=== PATIENT | female | born 1930 | race Caucasian/White ===

== ENCOUNTER 2017-02-03 11:40 | Day surgery (SDC) | payer BC, MEDICARE ==
[2017-02-03] MEDS ORDERED: LIDOCAINE 2% MDV (20MG/ML) 20ML VIAL IV ONE (15:48)
[2017-02-03] MEDS ORDERED: PROPOFOL 10 MG/ML VIAL IV ONE (15:48)
--- NOTE | 2017-02-04 16:42 | Operative Note ---
DATE OF SURGERY: 02/03/2017 OPERATION: COLONOSCOPY to the cecum. INDICATION: Colorectal cancer screening. ANESTHESIA: Intravenous sedation was administered by the department of anesthesiology and included Diprivan titrated to effect. PROCEDURE: Following informed consent from this alert individual, including a discussion of the risks and benefits of the procedure and an opportunity for the patient to ask questions, the patient was in the left lateral decubitus position. A digital rectal examination was performed. No abnormalities were noted. Following this, the Olympus JCS250 video colonoscope was inserted into the rectum without resistance. The rectal mucosa had a normal appearance with normal folds and distensibility. The colonoscope was advanced up through the bowel to the level of the cecum without much difficulty. A few scattered diverticula were noted in the sigmoid region. The colon preparation was good. From the base of the cecum, the colonoscope was then withdrawn back through the bowel, reexamining the mucosa upon withdrawal. Again the right colon and transverse colon were endoscopically normal. Descending colon likewise was free from changes. There were a few scattered diverticula noted in the sigmoid colon. The endoscope was then drawn back into the rectum where retroflexion accomplished following air insufflation demonstrated small internal hemorrhoids. The endoscope was straightened and removed. The patient tolerated the procedure well and was returned to the recovery area in stable condition. IMPRESSION: 1. Sigmoid diverticulosis. 2. Small internal hemorrhoids. RECOMMENDATIONS: The patient was advised to follow up with the primary care physician. As always, thank you for allowing me to participate in the care of your patient. Nick Weaver DO CC: Dr. Elyse TALAMANTES
== END 2017-02-03 15:15 | disposition home or self-care (01) ==
LOC: HOP 11:40
PROVIDERS: ATTEND Internal Medicine Gastroenterology
DX: Z12.11 Encounter for screening for malignant neoplasm of colon (principal); K57.30 Diverticulosis of large intestine without perforation or abscess without bleeding; K64.8 Other hemorrhoids
CPT/HCPCS: 00810; G0121

== ENCOUNTER 2017-02-07 00:49 | Emergency (ER) | payer BC, MEDICARE ==
--- NOTE | 2017-02-07 01:19 | Emergency Department Record ---
History of Present Illness - General Chief Complaint: Fall Injury Stated Complaint: SLIP AND FALL Time Seen by Provider: 02/07/17 01:13 Source: Patient Mode of Arrival: EMS Limitations: No limitations - History of Present Illness Initial Comments: 86 yo female presents to ED with a CC of a "slip off the end of my bed this morning". Patient reports that she slid from the edge of her bed striking her bottom on the floor, denies injury to the head or neck, but reports that she bumped her knee against her bed rail. Patient reports that she is unable to get up from sitting of the floor at the baseline, but following help from EMS, patient reported that it felt as though her left knee was going to "give out". 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 Patient denies headache, neck pain, numbness, tingling, or extremity weakness on examination. MD Complaint: Fall Onset/Timin -: Minutes(s) Fall From: Out of bed When Fall Occurred: Just prior to arrival Fall Witnessed: Yes, by family Place Fall Occurred: Home Loss of Consciousness: None Prolonged Down Time?: Unclear Symptoms Prior to Fall: None Location - Extremities: Left: Knee Associated Symptoms: Denies - [place] Coma Scale Eye Response: (4) Open spontaneously Motor Response: (6) Obeys commands Verbal Response: (5) Oriented [place] Total: 15 - Related Data Home Medications Medication Instructions Recorded Confirmed Last Taken Lisinopril 10 mg PO DAILY 01/23/16 02/07/17 02/07/17 t-1 Cholecalciferol (Vitamin D3) 1,000 unit PO DAILY 02/07/17 02/07/17 02/06/17 [Vitamin D3] Metoprolol Succinate [Toprol Xl] 25 mg PO DAILY 02/07/17 02/07/17 02/06/17 Warfarin Sodium [Coumadin] 2 mg PO DAILY 02/07/17 02/07/17 02/06/17 Allergies Allergy/AdvReac Type Severity Reaction Status Date / Time codeine Allergy Unknown shivering Verified 02/07/17 00:50 Travel Screening - Travel/Exposure Within Last 30 Days Have you traveled within the last 30 days?: No - Travel Symptoms Symptom Screening: None Review of Systems Constitutional: Denies: Chills, Fever, Malaise, Night sweats Eyes: Denies: Eye discharge, Eye pain ENT: Denies: Congestion, Ear pain, Epistaxis Respiratory: Denies: Cough, Dyspnea Cardiovascular: Denies: Chest pain, Dyspnea on exertion Endocrine: Denies: Fatigue, Heat or cold intolerance Gastrointestinal: Denies: Abdominal pain, Nausea, Vomiting Genitourinary: Denies: Incontinence, Retention Musculoskeletal: Reports: Arthralgia (left knee pain). Denies: Back pain Skin: Denies: Bruising, Change in color Neurological: Denies: Abnormal gait, Confusion, Seizure Psychiatric: Denies: Anxiety Hematological/Lymphatic: Denies: Anemia, Blood Clots Past Medical History - SOCIAL HISTORY Smoking Status: Never smoker - RESPIRATORY Hx Respiratory Disorders: No - CARDIOVASCULAR Hx Cardio Disorders: Yes Hx Hypertension: Yes Hx Irregular Heartbeat: Yes (AFIB) - NEURO Hx Neuro Disorders: Yes Hx of Migraines: Yes - GI Hx GI Disorders: Yes Hx Reflux: Yes - Hx Genitourinary Disorders: Yes Hx Bladder Problem: Yes (NOCTURIA) - ENDOCRINE Hx Endocrine Disorders: No - MUSCULOSKELETAL Hx Musculoskeletal Disorders: Yes Hx Arthritis: Yes - PSYCH Hx Psych Problems: No - HEMATOLOGY/ONCOLOGY Hx Hematology/Oncology Disorders: Yes Hx Cancer: Yes (MELANOMA) Hx Chemotherapy: No Hx Radiation Therapy: No Family Medical History Any Significant Family History?: Yes Hx Cancer: Father Hx Heart Disease: Father Hx Kidney Disease: Mother Physical Exam - General General Appearance: Alert, Oriented x3, Cooperative, No acute distress, Other ( talkative on examination) Limitations: No limitations - Head Head exam: Atraumatic, Normocephalic, Normal inspection Head exam detail: negative: Abrasion, Contusion, Benson's sign, General tenderness, Hematoma, Laceration - Eye Eye exam: Normal appearance. negative: Conjunctival injection, Periorbital swelling, Periorbital tenderness, Scleral icterus - ENT Ear exam: negative: Auricular hematoma, Auricular trauma Nasal Exam: negative: Active bleeding, Discharge, Dried blood, Foreign body Mouth exam: negative: Drooling, Laceration, Muffled voice, Tongue elevation - Neck Neck exam: Normal inspection. negative: Meningismus, Tenderness - Respiratory Respiratory exam: Normal lung sounds bilaterally. negative: Rales, Respiratory distress, Rhonchi, Stridor - Cardiovascular Cardiovascular Exam: Regular rate, Normal rhythm, Normal heart sounds - GI/Abdominal GI/Abdominal exam: Soft. negative: Rebound, Rigid, Tenderness - Rectal Rectal exam: Deferred - exam: Deferred - Extremities Extremities exam: Tenderness, Other (Mild TTP over the left knee, limited ROM but is at her current baseline due to previous injury, no ecchymosis or signs of trauma are present). negative: Calf tenderness, Pedal edema - Back Back exam: Denies: CVA tenderness (R), CVA tenderness (L) - Neurological Neurological exam: Alert, Normal gait, Oriented X3 - Psychiatric Psychiatric exam: Normal affect, Normal mood - Skin Skin exam: Normal color. negative: Abrasion Type of lesion: negative: abrasion Course Vital Signs 02/07/17 00:55 Temperature 97.5 F L Pulse Rate [ 97 H Pulse Ox Probe] Respiratory 26 H Rate Blood Pressure 139/77 [Left Arm] Pulse Ox 96 - Reevaluation(s) Reevaluation #1: 02/07/17 01:45 Labs reviewed, INR 0.95, labs are grossly unremarkable for an acute process. Reevaluation #2: 02/07/17 02:19 CT Brain: Chronic changes, nothing acute CT Cervical Spine: Chronic degenerative changes, nothing acute Left Knee: Probable well-healed injury to the left knee, nothing acute. Reevaluation #3: 02/07/17 03:40 Patient is able to bear weight, and appears stable for discharge at this time. Medical Decision Making - Lab Data Result diagrams: 02/07/17 01:25 02/07/17 01:25 Disposition Disposition: Discharge Clinical Impression: Fall from bed, initial encounter Qualifiers: Encounter type: initial encounter Qualified Code(s): W06.XXXA - Fall from bed, initial encounter Disposition: Home, Self-Care Condition: (2) Stable Instructions: Fall Prevention for Older Adults (ED) Additional Instructions: Return to ED if your symptoms worsen or if you have any concerns. Follow-up with Dr. Pappas in 3-5 days as directed. Forms: Patient Portal Access Time of Disposition: 02:21
[2017-02-07 01:34] LABS: BASO % 0.6 % (0-6); GRAN % 55.4 % (47-80); HEMATOCRIT 39.3 % (35.0-47.0); HEMOGLOBIN 12.2 gm/dl (11.6-16.0); LYMPH % 33.4 % (16-45); MEAN CELL VOLUME 87.3 fl (81-97); MEAN CORPUSCULAR HEMOGLOBIN 27.1 pg (27-33); MEAN PLATELET VOLUME 10.4 fl (7.4-10.4); MONO % 8.6 % (0-9); PLATELET COUNT 268 K/uL (130-400); RED CELL DISTRIBUTION WIDTH 13.7 % (11.5-14.5); WHITE BLOOD COUNT W/O DIFF 5.1 K/uL (4.2-12.2)
[2017-02-07 01:42] LABS: INR 0.95; PROTHROMBIN TIME (PATIENT) 10.7 SECONDS (9.5-12.1)
[2017-02-07 01:43] LABS: ALBUMIN 4.1 gm/dL (3.5-5.0); ALKALINE PHOSPHATASE 106 U/L (38-126); AST/SGOT 40 U/L (14-36); BILIRUBIN,TOTAL 0.53 mg/dL (0.2-1.3); BLOOD UREA NITROGEN 25 mg/dL (7-17); CREATININE 0.8 mg/dL (0.52-1.04); EST GLOMERULAR FILTRATION RATE > 60 ml/min; GLUCOSE,RANDOM 105 mg/dL (70-110)
[2017-02-07 01:48] LABS: ALB/GLOB RATIO 1.4 (1.1-1.8); ALT/SGPT 29 U/L (9-52); TOTAL PROTEIN 7.1 gm/dL (6.3-8.2)
--- NOTE | 2017-02-12 07:48 | RADIOLOGY REPORT ---
EXAM: LEFT KNEE HISTORY: INJURY. TECHNIQUE: Three views of the left knee were performed. FINDINGS: There is tricompartmental joint space narrowing. No evidence of fracture or dislocation. There is a small joint effusion. IMPRESSION: TRICOMPARTMENTAL JOINT SPACE NARROWING. SMALL JOINT EFFUSION. JOB NUMBER: [id number] MTDD
--- NOTE | 2017-02-12 07:51 | CT SCAN REPORT ---
EXAM: CT OF THE BRAIN WITHOUT CONTRAST HISTORY: FALL. TECHNIQUE: Sequential axial images were obtained from the foramen magnum to the vertex without contrast administration. FINDINGS: There is age appropriate cortical atrophy with periventricular small vessel ischemia. There is slight hyperdensity in the distal basilar artery. No large territorial infarct, hemorrhage, mass effect, or midline shift. No extraaxial fluid collection. The orbits, paranasal sinuses, and mastoid air cells appear normal. IMPRESSION: 1. MILD HYPERDENSITY IN THE BASILAR ARTERY. NO CT FINDINGS SUGGESTIVE OF ACUTE INFARCTION. 2. PERIVENTRICULAR SMALL VESSEL ISCHEMIA. JOB NUMBER: [id number] MTDD
--- NOTE | 2017-02-12 07:54 | CT SCAN REPORT ---
EXAM: CT OF THE CERVICAL SPINE WITHOUT CONTRAST HISTORY: FALL. TECHNIQUE: Sequential axial images were obtained through the cervical spine without intravenous contrast administration. Sagittal and coronal reformatted images were performed. FINDINGS: There is mild multilevel degenerative change. No evidence of fracture, subluxation, or perched facet. The lateral masses are well aligned. IMPRESSION: MILD MULTILEVEL DEGENERATIVE CHANGE. NO EVIDENCE OF FRACTURE, SUBLUXATION, OR PERCHED FACET. JOB NUMBER: [id number] MTDD
== END 2017-02-07 03:30 | disposition home or self-care (01) ==
LOC: ER 00:49
DX: M25.562 Pain in left knee (principal); G89.11 Acute pain due to trauma; M50.30 Other cervical disc degeneration, unspecified cervical region; I48.91 Unspecified atrial fibrillation; I10 Essential (primary) hypertension; W06.XXXA Fall from bed, initial encounter; Y92.009 Unspecified place in unspecified non-institutional (private) residence as the place of occurrence of the external cause
CPT/HCPCS: 70450; 72125; 80053; 85025; 85610; 99283; 99284